=== PATIENT | female | born 1960 | race Hispanic/Latino ===

== ENCOUNTER 2017-04-06 14:44 | Outpatient (CLI) | payer OTHER ==
--- NOTE | 2017-04-06 16:19 | MRI ---
MR OF THE LEFT KNEE WITHOUT CONTRAST 04/06/17 INDICATION: Fall on knee with left knee pain. COMPARISON: None. FINDINGS: There is a grade III sprain involving the proximal MCL, best seen on image 16 of series 6. The PCL, A CL, LCLC and extensor mechanism are intact. There is diffuse chondrosis involving the femorotibial joint compartments. There is mild diffuse dahlia drosis involving the patellofemoral compartment with an area of focal full thickness articular cartil age thinning involving the lateral patellar facet measuring 4 mm. There is subchondral cyst-like abno rmality seen within the patella in this location. There is some mild osteophytes affecting all major compartments. There is a horizontally oriented tear involving the body and posterior horn of lateral meniscus. Ther e is some intrasubstance degenerative signal within the posterior body of the medial meniscus. There is a small Urias's cyst. Popliteus and IT band are normal appearing. IMPRESSION: 1. Grade III sprain of the proximal MCL. 2. Mild osteoarthrosis of the left knee. 3. Lateral meniscal tear. POS: [facility]
== END 2017-04-06 14:45 | disposition home or self-care (01) ==
LOC: SCSMRI 14:44
PROVIDERS: ATTEND Family Medicine
DX: S86.812D Strain of other muscle(s) and tendon(s) at lower leg level, left leg, subsequent encounter (principal); S80.02XD Contusion of left knee, subsequent encounter; S83.412D Sprain of medial collateral ligament of left knee, subsequent encounter; M17.12 Unilateral primary osteoarthritis, left knee; S83.282D Other tear of lateral meniscus, current injury, left knee, subsequent encounter

== ENCOUNTER 2017-04-20 14:12 | Outpatient (CLI) | payer OTHER ==
--- NOTE | 2017-04-20 15:59 | MRI ---
MRI RIGHT KNEE WITHOUT CONTRAST: HISTORY: Pain. COMPARISON: Radiographs 03/17/17. FINDINGS: Medial Meniscus: Intact. Lateral Meniscus: Mild free edge fraying of the lateral meniscal body with the small radial tear involving the free edg e and white zone. The ACL and PCL are intact. There is mild edema on both sides of the MCL. The LCL is intact. Extensor Mechanism: Quadriceps tendon, patella, and patellar tendon are intact. Mild proximal patellar tendinosis. Cartilage: Patellar Femoral Compartment: There are full-thickness cartilage fissures of the patellar apex with subchondral edema. Medial Compartment: Intact. Lateral Compartment: Intact. Bones: There is a focal area of submeniscal edema of the anterior medial tibial rim. IMPRESSION: 1. Focal full-thickness cartilage fissure of the patellar apex mid portion of the patella with subch ondral edema. This may be relatively acute. 2. Focal area of submeniscal medial anterior tibial rim edema may be from contusion. 3. Edema within the popliteus may be from sequelae of a healing injury. 4. Mild irregularity as well as edema in the superficial and deep aspects of the proximal portion of medial collateral ligament may be healing injury. POS: OFF
== END 2017-04-20 14:13 | disposition home or self-care (01) ==
LOC: SCSMRI 14:12
PROVIDERS: ATTEND Family Medicine
DX: S89.91XD Unspecified injury of right lower leg, subsequent encounter (principal)

== ENCOUNTER 2018-09-03 16:04 | Outpatient (CLI) | payer BC ==
--- NOTE | 2018-09-03 17:42 | MMO ---
Bilateral MAMMO Bilat Screen [facility]. CLINICAL HISTORY: Patient is 58 years old and is seen for screening. The patient has no family history of breast cancer. The patient has no personal history of cancer. VIEWS: The views performed were: bilateral craniocaudal with tomosynthesis and bilateral mediolateral oblique with tomosynthesis. FILMS COMPARED: The present examination has been compared to a prior imaging study performed at [facility] on 08/12/2016. MAMMOGRAM FINDINGS: The breasts are almost entirely fat. There are no suspicious masses, suspicious calcifications, or new areas of architectural distortion. IMPRESSION: THERE IS NO MAMMOGRAPHIC EVIDENCE OF MALIGNANCY. A ROUTINE FOLLOW-UP MAMMOGRAM IN 1 YEAR IS RECOMMENDED. THE RESULTS OF THIS EXAM WERE SENT TO THE PATIENT. ACR BI-RADS Category 1 - Negative MAMMOGRAPHY NOTE: 1. A negative mammogram report should not delay a biopsy if a dominant of clinically suspicious mass is present. 2. Approximately 10% to 15% of breast cancers are not detected by mammography. 3. Adenosis and dense breasts may obscure an underlying neoplasm.
== END 2018-09-03 16:05 | disposition home or self-care (01) ==
LOC: BICMAMMO 16:04
PROVIDERS: ATTEND Internal Medicine
DX: Z12.31 Encounter for screening mammogram for malignant neoplasm of breast (principal)
CPT/HCPCS: 77063; 77067

== ENCOUNTER 2020-05-14 13:54 | Outpatient (CLI) | payer BC | END 2020-05-14 13:55 | disposition home or self-care (01) | LOC: BICMAMMO 13:54 | PROVIDERS: ATTEND Obstetrics & Gynecology | DX: Z12.31 Encounter for screening mammogram for malignant neoplasm of breast (principal) | CPT/HCPCS: 77063; 77067 ==

== ENCOUNTER 2022-06-27 12:46 | Outpatient (CLI) | payer BC | END 2022-06-27 12:47 | disposition home or self-care (01) | LOC: BICMAMMO 12:46 | PROVIDERS: ATTEND Internal Medicine | DX: Z12.31 Encounter for screening mammogram for malignant neoplasm of breast (principal) | CPT/HCPCS: 77063; 77067 ==

== ENCOUNTER 2023-02-03 15:30 | Outpatient (CLI) | payer BC | END 2023-02-03 15:31 | disposition home or self-care (01) | LOC: BICRAD 15:30 | PROVIDERS: ATTEND Internal Medicine | DX: M47.22 Other spondylosis with radiculopathy, cervical region (principal); M47.816 Spondylosis without myelopathy or radiculopathy, lumbar region | CPT/HCPCS: 72040; 72072; 72100; 72220 ==

== ENCOUNTER 2023-11-23 15:00 | Outpatient (CLI) | payer BC | END 2023-11-23 15:01 | disposition home or self-care (01) | LOC: BICMAMMO 15:00 | PROVIDERS: ATTEND Internal Medicine | DX: Z12.31 Encounter for screening mammogram for malignant neoplasm of breast (principal); N63.15 Unspecified lump in the right breast, overlapping quadrants | CPT/HCPCS: 77063; 77067 ==

== ENCOUNTER 2023-11-27 13:40 | Outpatient (CLI) | payer BC | END 2023-11-27 13:41 | disposition home or self-care (01) | LOC: BICULT 13:40 | PROVIDERS: ATTEND Internal Medicine | DX: N63.15 Unspecified lump in the right breast, overlapping quadrants (principal) ==

== ENCOUNTER 2024-12-06 10:59 | Outpatient (CLI) | payer BC | END 2024-12-06 11:00 | disposition home or self-care (01) | LOC: BICMAMMO 10:59 | PROVIDERS: ATTEND Internal Medicine | DX: Z12.31 Encounter for screening mammogram for malignant neoplasm of breast (principal); Z78.0 Asymptomatic menopausal state; M85.851 Other specified disorders of bone density and structure, right thigh | CPT/HCPCS: 77063; 77067; 77080 ==